=== PATIENT | male | born 1975 | race Caucasian/White ===

== ENCOUNTER → 2016-08-31 | Outpatient (CLI) | payer MEDICAID ==
--- NOTE | 2016-08-31 15:42 | US ---
Ultrasound Thyroid History: Thyrotoxicosis. E05.81 Technique: Longitudinal and transverse ultrasound imaging of the thyroid gland. Findings: Right lobe of the thyroid measures 5. 2 x 2 x 2.3 cm. Left lobe of the thyroid measures 5 x 2 x 1.7 cm. Isthmus thickness is 0.3 cm. In the right lobe of the thyroid there is a slightly hyperechoic solid nodule measuring 2.3 x 2 x 1.8 cm. Impression: Right lobe solitary solid 2.3 x 2 x 1.8 cm nodule. Recommendation: Ultrasound-guided FNA biopsy to exclude malignancy.
== END ==
LOC: BRMIMAGING 15:05
PROVIDERS: ATTEND Physician Assistant
DX: E04.1 Nontoxic single thyroid nodule (principal)